=== PATIENT | female | born 1980 | race Caucasian/White ===

== ENCOUNTER 2016-09-12 09:56 | Emergency (ER) | payer SELFPAY ==
[~2016-09-12] VITALS: Ht 175.3 cm; Wt 100.0 kg
[~2016-09-12 09:56] MED LIST: DIVA500T35 PO; DOCU250C91 PO; LURA40 PO; VITAD1000 PO
[2016-09-12 12:11] VITALS: BP 127/81
[2016-09-12] MEDS ORDERED: BENZONATATE 100 MG CAPSULE PO ONE (12:15)
== END 2016-09-12 12:18 | disposition home or self-care (01) ==
LOC: EMS 09:57
DX: S00.03XA Contusion of scalp, initial encounter (principal); F17.210 Nicotine dependence, cigarettes, uncomplicated; M79.7 Fibromyalgia; W18.30XA Fall on same level, unspecified, initial encounter; Y93.89 Activity, other specified; Y92.9 Unspecified place or not applicable; Y99.9 Unspecified external cause status
CPT/HCPCS: 70450; 99284

== ENCOUNTER 2016-10-19 14:18 | Emergency (ER) | payer SELFPAY ==
[~2016-10-19] VITALS: Ht 175.3 cm; Wt 100.0 kg
[2016-10-19] MEDS ORDERED: LIDOCAINE HCL 1% 10 ML VIAL INJ ONE (15:15)
[2016-10-19] MEDS ORDERED: MORPHINE SULFATE 4 MG/ML SYRINGE IVP ONE (15:15)
[2016-10-19] MEDS ORDERED: ONDANSETRON HCL 4 MG/2 ML VIAL IVP ONE (15:15)
[2016-10-19] MEDS ORDERED: AMOX TR/POT CLAV 875 MG/125 MG TABLET PO ONE (16:15)
[2016-10-19 16:50] VITALS: BP 165/73
== END 2016-10-19 16:54 | disposition home or self-care (01) ==
LOC: EDUNIT# 14:18 → EMS 14:20
DX: L03.221 Cellulitis of neck (principal); L02.11 Cutaneous abscess of neck; F17.210 Nicotine dependence, cigarettes, uncomplicated
CPT/HCPCS: 10060; 81025; 99283; J2270; J2405; J3490